=== PATIENT | male | born 1950 | race Two or more races ===

== ENCOUNTER 2020-03-15 14:42 | Emergency (ER) | payer SELFPAY ==
[~2020-03-15] VITALS: Ht 167.6 cm; Wt 70.0 kg
== END 2020-03-15 22:00 | disposition home or self-care (01) ==
LOC: ER 21:04
DX: Z03.818 Encounter for observation for suspected exposure to other biological agents ruled out (principal)
CPT/HCPCS: 99283; U0003; 99281

== ENCOUNTER → 2020-09-24 | Outpatient (CLI) | payer OTHER | END | disposition home or self-care (01) | LOC: LAB 12:19 | PROVIDERS: ATTEND Internal Medicine Critical Care Medicine | DX: Z20.828 Contact with and (suspected) exposure to other viral communicable diseases (principal) | CPT/HCPCS: C9803; U0003 ==